=== PATIENT | female | born 1965 | race Caucasian/White ===

== ENCOUNTER 2016-08-08 09:49 | Emergency (ER) | payer BC ==
--- NOTE | 2016-08-09 10:52 | ER ---
ADMIT: 08/08/2016 RM/LOC: ER [facility] MR#: [id number] [facility] [address] [place] [id number] AMANDA LIU [address] [place] [address] Emergency Room Report SEX: F AGE: 51 : 1965 DATE: 08/08/2016 HISTORY OF PRESENT ILLNESS: This is a 51-year-old female, presents to the emergency room, complaining of a nose bleed for 4 days, on and off. She says on Saturday, she had 2 nosebleeds; on Saturday, 2 nosebleed; on Saturday, 3; and she does not have any issues in the past that had caused bleeding. No blood dyscrasia. No anticoagulant, no aspirin use, no liver problems. PAST MEDICAL HISTORY: Essentially negative. She does have high blood pressure sometimes she says. She has had right heel surgery. PHYSICAL EXAMINATION: VITAL SIGNS: Blood pressure 136/85, heart rate 80s, respirations 16, temp is 97, O2 sats 99%. She is a smoker, 1 pack a day. GENERAL: She is alert. She has active minimal bleeding in the Kiesselbach plexus in the right naris. No pain on percussion of the sinuses. She is mildly anxious. NECK: Supple. Posterior pharynx, does not have any blood. Remaining of the examination is negative. CLINICAL IMPRESSION: Epistasis, right anterior, resolved. PROCEDURE: She was asked to blow her nose. Blood was removed from the nares and Tadeo-Synephrine sprayed. A clamp and 30-45 minutes external pressure was added. I observed the area is totally constricted after the adrenaline and lidocaine. No bleeding present. She is discharged with instructions and followup and I did give her KY jelly, and instilled KY jelly in the right naris to lubricate the area. The patient verbalized understanding. Advised to hydrate, use the Afrin for the next 2 days as needed. Continue home medications. Avoid blowing forcefully the nose and follow up with her doctor. CLAUDIO Restrepo / Dain Mir MD / chance JOB #: [id number] CC: Emiliano Fontaine MD, Attending Physician Moy Rock DO, Family Physician
== END 2016-08-08 11:50 | disposition home or self-care (01) ==
LOC: ER 09:49
DX: R04.0 Epistaxis (principal); F17.210 Nicotine dependence, cigarettes, uncomplicated